=== PATIENT | female | born 1950 | race Caucasian/White ===

== ENCOUNTER → 2016-12-09 | Outpatient (CLI) | payer MEDICARE, BC ==
--- NOTE | 2016-12-12 07:52 | MM ---
Reason for exam: history of breast cancer, conservation therapy. Last mammogram was performed 6 months ago. History: Patient is postmenopausal, has history of breast cancer at age 65, has history of high-risk lesion on a previous biopsy at age 65, and has history of other cancer at age 51. Family history of breast cancer in maternal grandmother at age 50 and breast cancer in paternal aunt at age 40. High risk MG stereo VAD BX RT of the right breast, June 27, 2016. Lumpectomy of the right breast, June 2016. Radiation therapy of the right breast, June 2016. Benign core biopsy of the left breast, 1979. Took hormonal contraceptives for 10 years beginning at age 14. Physical Findings: Nurse did not find any significant physical abnormalities on exam. MG 3D Diag Mammo W/Cad PHAN Bilateral CC and MLO view(s) were taken. Prior study comparison: June 08, 2016, right breast MG diagnostic mammo RT w CAD. November 23, 2015, right breast MG 3d work up w/cad RT. There are scattered fibroglandular densities. Finding: Architectural distortion in the right breast consistent with previous lumpectomy. This will be the new baseline. These results were verbally communicated with the patient and result sheet given to the patient on 12/09/16. ASSESSMENT: Probably benign, BI-RAD 3 RECOMMENDATION: Follow-up diagnostic mammogram of the right breast in 6 months.
== END | disposition home or self-care (01) ==
LOC: RADMAMWWP 12:59
PROVIDERS: ATTEND Family Medicine
DX: Z09 Encounter for follow-up examination after completed treatment for conditions other than malignant neoplasm (principal); Z85.3 Personal history of malignant neoplasm of breast; Z87.898 Personal history of other specified conditions
CPT/HCPCS: G0204; G0279

== ENCOUNTER → 2017-06-12 | Outpatient (CLI) | payer MEDICARE, BC ==
--- NOTE | 2017-06-12 13:54 | MM ---
Reason for exam: follow-up at short interval from prior study. Last mammogram was performed 6 months ago. History: Patient is postmenopausal, has history of breast cancer at age 65, has history of high-risk lesion on a previous biopsy at age 65, and has history of other cancer at age 51. Family history of breast cancer in maternal grandmother at age 50 and breast cancer in paternal aunt at age 40. High risk MG stereo VAD BX RT of the right breast, June 27, 2016. Lumpectomy of the right breast, June 2016. Radiation therapy of the right breast, June 2016. Benign core biopsy of the left breast, 1979. Took hormonal contraceptives for 10 years beginning at age 14. Physical Findings: Nurse did not find any significant physical abnormalities on exam. MG 3D Diag Mammo W/Cad PHAN Bilateral CC and MLO view(s) were taken. Prior study comparison: December 09, 2016, bilateral MG 3d diag mammo w/cad PHAN. June 08, 2016, right breast MG diagnostic mammo RT w CAD. June 08, 2016, right breast US breast RT. November 12, 2014, bilateral MG screening mammo w CAD. October 16, 2013, bilateral digital screening mammo w/CAD. February 10, 2011, CAD bilateral diagnostic mammogram. The breast tissue is heterogeneously dense. This may lower the sensitivity of mammography. There is chronic nodularity in the left breast. Redemonstrated post surgical and post therapy changes in the right breast. The overall thickening and breast density shows slight improvement. Continued 6 month follow up recommended to assess the evolving changes. These results were verbally communicated with the patient and result sheet given to the patient on 06/12/17. ASSESSMENT: Probably benign, BI-RAD 3 RECOMMENDATION: Follow-up diagnostic mammogram of the right breast in 6 months.
== END | disposition home or self-care (01) ==
LOC: RADMAMWWP 12:22
PROVIDERS: ATTEND Family Medicine
DX: C50.919 Malignant neoplasm of unspecified site of unspecified female breast (principal)
CPT/HCPCS: G0204; G0279

== ENCOUNTER → 2017-08-02 | Outpatient (CLI) | payer MEDICARE, BC ==
--- NOTE | 2017-08-03 06:56 | WWHP ---
[facility] - HISTORY AND PHYSICAL CHIEF COMPLAINT: The patient is here for her routine gynecologic exam. HPI: This is a 66-year-old G1, P1 with an LMP of 2001. The patient is without gynecologic complaints. 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 She is status post lumpectomy and radiation therapy. Also history of acute promyelocytic leukemia in 2002, type 2 diabetes, hypothyroidism, chronic hypertension, elevated cholesterol, seasonal allergies, and gastroesophageal reflux disease and history of left ventricular hypertrophy. MEDICATIONS: Metformin 500 mg 1 in the morning and 2 in the evening, levothyroxine 112 mcg daily, lisinopril 10 mg b.i.d., cetirizine 10 mg daily, simvastatin 40 mg daily. Montelukast 10 mg daily. Omeprazole 20 mg p.r.n. Allergy shots weekly. Vitamin D 2000 units daily. ALLERGIES: No known drug allergies. PAST SURGICAL HISTORY: Tonsillectomy, tubal ligation, cholecystectomy, D and C, parathyroidectomy, cataract surgery in the past. Upper endoscopy with colonoscopy in 2011 and 2014. Right breast biopsy and right breast lumpectomy 2016. 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 She has no other history of STDs. SOCIAL HISTORY: She denies tobacco and drug use and has about 4 alcohol-containing drinks per year. She has been since 1980 and this is her 2nd marriage. 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 FAMILY HISTORY: Unchanged from the 07/12/2016 H and P. REVIEW OF SYSTEMS: She has gained about 3 pounds over the last year. She denies cardiac problems. RESPIRATORY: She is getting over bronchitis and is completing a course of antibiotics for this. GI: She states she has occasional stool urgency at random times. She denies maltreatment or falling. : She denies any significant leakage but does have occasional urinary frequency, especially when she drinks diet pop. PHYSICAL EXAM: Blood pressure 146/75, height 5 feet 1 inch, weight 188 pounds. BMI is 36, temperature 98.3, pulse 85. This is a well-developed, heavyset white female, who is alert and oriented x3, in no acute distress. HEENT: Within normal limits. NECK: Supple without mass or thyromegaly. CHEST AND LUNGS: Clear to auscultation. HEART: Regular rate and rhythm. BREASTS: On the right breast status post lumpectomy and there is dimpled area in the area of the scar at approximately the 1 o'clock position near the areola. This is well healed. There are no abnormal masses. There is some skin thickening in the right breast consistent with her previous radiation therapy. There are no left breast masses or tenderness. Axillary exam is negative for adenopathy. BACK: Negative for CVA tenderness. ABDOMEN: Soft, nontender, without palpable masses. PELVIC EXAM: External genitalia reveals mild atrophy without lesions. Cervix and vagina reveals mild atrophy without lesions. There is no significant prolapse. The uterus is mid position nongravid size and nontender. There are no palpable adnexal masses or tenderness. RECTOVAGINAL: Exam is negative for mass or tenderness and is negative for occult blood. EXTREMITIES: Nontender. IMPRESSION: 1. 66-year-old menopausal female with normal gynecologic exam. 2. History of right breast cancer status post lumpectomy and radiation therapy with no evidence of recurrence at this time. PLAN: 1. Pap smear was deferred since she had a normal one last year. 2. Self-breast examination was discussed. 3. She had a recent bilateral diagnostic mammogram on 06/12/17, which was felt to be benign. She is due for a right diagnostic mammogram in November of 2017. An order slip was given to the patient for this. 4. Osteoporosis prevention was discussed. She states she had a recent bone density test done earlier this year through her chief clerk and this was in the low normal range according to the patient. 5. She states she does home blood pressure checks and will follow up with her primary care physician for elevated blood pressures. 6. She did get a flu shot this fall. 7. She will return in 1 year. MMODL / IJN: [id number] /
== END ==
LOC: WWCWWP 11:03
PROVIDERS: ATTEND Obstetrics & Gynecology
DX: Z01.419 Encounter for gynecological examination (general) (routine) without abnormal findings (principal)

== ENCOUNTER → 2017-12-11 | Outpatient (CLI) | payer MEDICARE, BC ==
--- NOTE | 2017-12-11 11:50 | MM ---
Reason for exam: follow-up at short interval from prior study. Last mammogram was performed 6 months ago. History: Patient is postmenopausal, has history of breast cancer at age 65, has history of high-risk lesion on a previous biopsy at age 65, and has history of other cancer at age 51. Family history of breast cancer in maternal grandmother at age 50 and breast cancer in paternal aunt at age 40. High risk MG stereo VAD BX RT of the right breast, June 27, 2016. Lumpectomy of the right breast, June 2016. Radiation therapy of the right breast, June 2016. Benign core biopsy of the left breast, 1979. Took hormonal contraceptives for 10 years beginning at age 14. Physical Findings: Nurse did not find any significant physical abnormalities on exam. MG 3D Diag Mammo W/Cad RT CC and MLO view(s) were taken of the right breast. Prior study comparison: June 12, 2017, bilateral MG 3d diag mammo w/cad PHAN. December 09, 2016, bilateral MG 3d diag mammo w/cad PHAN. The breast tissue is heterogeneously dense. This may lower the sensitivity of mammography. No suspicious abnormality. Post therapy change on the right adjacent calcifications appear similar to priors. These results were verbally communicated with the patient and result sheet given to the patient on 12/11/17. ASSESSMENT: Benign, BI-RAD 2 RECOMMENDATION: Follow-up diagnostic mammogram of both breasts in 6 months. Back on schedule for May 2018.
== END | disposition home or self-care (01) ==
LOC: RADMAMWWP 10:37
PROVIDERS: ATTEND Family Medicine
DX: Z08 Encounter for follow-up examination after completed treatment for malignant neoplasm (principal); Z86.000 Personal history of in-situ neoplasm of breast
CPT/HCPCS: 77065; G0279

== ENCOUNTER → 2018-06-13 | Outpatient (CLI) | payer MEDICARE, BC ==
--- NOTE | 2018-06-13 13:59 | MM ---
Reason for exam: additional evaluation requested from prior study. Last mammogram was performed 6 months ago. History: Patient is postmenopausal, has history of breast cancer at age 65, has history of high-risk lesion on a previous biopsy at age 65, and has history of other cancer at age 51. Family history of breast cancer in maternal grandmother at age 50 and breast cancer in paternal aunt at age 40. High risk MG stereo VAD BX RT of the right breast, June 27, 2016. Lumpectomy of the right breast, June 2016. Radiation therapy of the right breast, June 2016. Benign core biopsy of the left breast, 1979. Took hormonal contraceptives for 10 years beginning at age 14. Physical Findings: Nurse did not find any significant physical abnormalities on exam. MG 3D Diag Mammo W/Cad PHAN Bilateral CC and MLO view(s) were taken. Spot compression CC, spot compression MLO, and LM view(s) were taken of the left breast. Prior study comparison: December 11, 2017, right breast MG 3d diag mammo w/cad RT. June 12, 2017, bilateral MG 3d diag mammo w/cad PHAN. The breast tissue is heterogeneously dense. This may lower the sensitivity of mammography. Developing asymmetry left lower inner quadrant. Post surgical changes in right breast. These results were verbally communicated with the patient and result sheet given to the patient on 06/13/18. ASSESSMENT: Incomplete: need additional imaging evaluation, BI-RAD 0 RECOMMENDATION: Ultrasound of the left breast.
--- NOTE | 2018-06-13 14:05 | USB ---
Reason for exam: additional evaluation requested from abnormal screening. History: Patient is postmenopausal, has history of breast cancer at age 65, has history of high-risk lesion on a previous biopsy at age 65, and has history of other cancer at age 51. Family history of breast cancer in maternal grandmother at age 50 and breast cancer in paternal aunt at age 40. High risk MG stereo VAD BX RT of the right breast, June 27, 2016. Lumpectomy of the right breast, June 2016. Radiation therapy of the right breast, June 2016. Benign core biopsy of the left breast, 1979. Took hormonal contraceptives for 10 years beginning at age 14. US Breast Limited LT Technologist: Melody Tillman, RT (R)(M) Left limited breast ultrasound including focal area of concern, retroareolar and axilla demonstrates several oval, cystic lesions measuring 7 x 4 x 4mm at 9 o'clock, 5 x 5 x 3mm at 6 o'clock, 5 x 4 x 4mm at 6 o'clock and 4mm at 6 o'clock. These results were verbally communicated with the patient and result sheet given to the patient on 06/13/18. ASSESSMENT: Probably benign, BI-RAD 3 RECOMMENDATION: Follow-up diagnostic mammogram and ultrasound of the left breast in 6 months.
== END | disposition home or self-care (01) ==
LOC: RADMAMWWP 10:41
PROVIDERS: ATTEND Family Medicine
DX: R92.8 Other abnormal and inconclusive findings on diagnostic imaging of breast (principal); C50.911 Malignant neoplasm of unspecified site of right female breast
CPT/HCPCS: 77066; 76642; G0279; 77062

== ENCOUNTER → 2018-09-05 | Outpatient (CLI) | payer MEDICARE, BC ==
[2018-09-05 10:56] VITALS: BP 146/66; PULSE 78; TEMP 97.5; BMI 33.4
--- NOTE | 2018-09-05 11:51 | P.HPOB ---
History of Present Illness H&P Date: 09/05/18 Chief Complaint: The patient is here for her routine gynecologic exam. This is a 67-year-old within LMP of 2001. The patient is without gynecologic complaints and denies any postmenopausal bleeding. Review of Systems The patient has lost 11 pounds over the last year with good diet. She denies respiratory, cardiac and G.I. problems. She denies maltreatment or problems with falling. : occasional leakage if she does not get to the bathroom in time or if she sneezes very hard. Past Medical History Past Medical History: Asthma, Cancer (Right breast cancer (DCIS)2016), Diabetes Mellitus (Type II diabetes), GERD/Reflux, Hyperlipidemia, Hypertension, Skin Disorder, Sleep Apnea/CPAP/BIPAP, Thyroid Disorder (Hypothyroid) Additional Past Medical History / Comment(s): hx ulcers ,exzema, "slipped disk in lower back". Acute promyelocytic leukemia in 2002, seasonal allergies and history of left ventricular hypertrophy. 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 History of Any Multi-Drug Resistant Organisms: None Reported Past Surgical History: Adenoidectomy, Cholecystectomy, Tonsillectomy, Tubal Ligation Additional Past Surgical History / Comment(s): parathyroid surgery, port/later removed,D&C,breast biopsy, cataracts, RK surgery. Upper endoscopy, colonoscopy 2015(2nd). Past Anesthesia/Blood Transfusion Reactions: Blood Transfusion Reaction Additional Past Anesthesia/Blood Transfusion Reaction / Comment(s): got hives during blood transfusion Past Psychological History: No Psychological Hx Reported Smoking Status: Never smoker Past Alcohol Use History: Rare (4 per year) Past Drug Use History: None Reported Additional History: She has been since 1980 and this is her 2nd marriage. She is retired. - Past Family History Brother(s) Family Medical History: Cancer (Leukemia) Father Family Medical History: Diabetes Mellitus, Myocardial Infarction (ID) Additional Family Medical History / Comment(s): Paternal great aunt had breast cancer. Mother Family Medical History: No Reported History Additional Family Medical History / Comment(s): Maternal grandmother had breast cancer. Medications and Allergies Home Medications and Allergies Comment(s): Allergy shots weekly. Home Medications Medication Instructions Recorded Confirmed Type Calcium Carbonate/Vitamin D3 2 each PO DAILY 08/26/15 09/05/18 History [Calcium 600 + Vit D Tablet] Cetirizine HCl 10 mg PO DAILY 08/26/15 09/05/18 History Cholecalciferol [Vitamin D3] 2,000 unit PO DAILY 08/26/15 09/05/18 History Ezetimibe/Simvastatin [Vytorin 1 tab PO HS 08/26/15 09/05/18 History 10-40 mg Tablet] Levothyroxine Sodium [Synthroid] 100 mcg PO DAILY 08/26/15 09/05/18 History Lisinopril [Prinivil] 20 mg PO BID 08/26/15 09/05/18 History metFORMIN HCL [Glucophage] 500 mg PO TID 08/26/15 09/05/18 History Allergies Allergy/AdvReac Type Severity Reaction Status Date / Time adhesive Allergy Severe red Verified 09/05/18 10:56 skin,rash,itchy Exam Vital Signs Temp Pulse BP 09/05/18 10:50 97.5 F L 78 146/66 Intake and Output 09/04/18 09/05/18 09/05/18 22:59 06:59 14:59 Other: Weight 80.286 kg Height 5'1", weight 177 pounds, BMI 33.4. This is a well-developed well-nourished heavyset white female who is alert and oriented times 3 in no acute distress. HEENT: Within normal limits. NECK: Supple without mass or thyromegaly. CHEST AND LUNGS: Clear to auscultation. HEART: Regular rate and rhythm. BREASTS: Are without mass or discharge. There is a dimpled area at the 12 o' clock to 1 o'clock position near the areola of the right breast consistent with her previous lumpectomy. There is some skin thickening in the area consistent with her previous radiation therapy. There are no palpable masses in either breast. There is no discharge. AXILLARY EXAM: Negative for adenopathy. BACK: Negative for CVA tenderness. ABDOMEN: Soft, nontender, without palpable masses. PELVIC EXAM: Normal external genitalia with mild to moderate atrophy. Cervix and vagina appear normal with mild to moderate atrophy. There is no unusual discharge. There is no evidence of prolapse. The uterus is midposition, nongravid size and nontender. There are no palpable adnexal masses or tenderness. RECTAL EXAM: rectovaginal exam is negative for mass or tenderness and is negative for occult blood. EXTREMITIES: Nontender. IMPRESSION: 1. 67-year-old menopausal female with normal gynecologic exam. 2. History of right breast cancer status post lumpectomy and radiation therapy with no evidence of recurrence at this time. PLAN: 1. Pap smear was performed. 2. Self breast awareness was discussed with the patient. 3. The patient had a mammogram in May 2018. They left a diagnostic mammogram and left breast ultrasound was recommended in 6 months. The order slip was given to the patient for this. 4. Osteoporosis prevention was discussed. I have stressed the importance of adequate calcium, vitamin D and regular exercise. Recommended amounts of calcium and vitamin D were also discussed. 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 5. She did receive for flu shot this fall. 6. She will return in one year.
== END ==
LOC: WWCWWP 10:42
PROVIDERS: ATTEND Obstetrics & Gynecology
DX: Z53.9 Procedure and treatment not carried out, unspecified reason (principal)

== ENCOUNTER → 2019-01-04 | Outpatient (CLI) | payer MEDICARE, BC ==
--- NOTE | 2019-01-07 10:48 | USB ---
Reason for exam: additional evaluation requested from abnormal screening. History: Patient is postmenopausal, has history of breast cancer at age 65, has history of high-risk lesion on a previous biopsy at age 65, and has history of other cancer at age 51. Family history of breast cancer in maternal grandmother at age 50 and breast cancer in paternal aunt at age 40. High risk MG stereo VAD BX RT of the right breast, June 27, 2016. Lumpectomy of the right breast, June 2016. Radiation therapy of the right breast, June 2016. Benign core biopsy of the left breast, 1979. Took hormonal contraceptives for 10 years beginning at age 14. US Breast LT Left complete breast ultrasound includes all four quadrants, the retroareolar region and axilla. Finding demonstrates a 0.5 x 0.4 x 0.5cm round, hypoechoic lesion at 6 o'clock, a 0.4 x 0.4 x 0.4cm round, hypoechoic lesion at 6 o'clock and a 0.8 x 0.6 x 0.8cm oval, hypoechoic lesion at 6 o'clock for which a biopsy is recommended. These results were verbally communicated with the patient and result sheet given to the patient on 01/04/19. ASSESSMENT: Suspicious, BI-RAD 4 RECOMMENDATION: Ultrasound core biopsy of the left breast. Called Dr. Anderson with mammographic findings and has scheduled an appointment for the patient for 01/21/19 at 10:[address] Davis. PRELIMINARY REPORT CALLED AND FAXED TO DR. DAVIS ON 01/07/19.
== END | disposition home or self-care (01) ==
LOC: RADUSWWP 13:45
PROVIDERS: ATTEND Obstetrics & Gynecology
DX: R92.8 Other abnormal and inconclusive findings on diagnostic imaging of breast (principal); D05.11 Intraductal carcinoma in situ of right breast; Z85.3 Personal history of malignant neoplasm of breast

== ENCOUNTER → 2019-01-04 | Outpatient (CLI) | payer MEDICARE, BC ==
--- NOTE | 2019-01-07 10:45 | MM ---
Reason for exam: follow-up at short interval from prior study. Last mammogram was performed 7 months ago. History: Patient is postmenopausal, has history of breast cancer at age 65, has history of high-risk lesion on a previous biopsy at age 65, and has history of other cancer at age 51. Family history of breast cancer in maternal grandmother at age 50 and breast cancer in paternal aunt at age 40. High risk MG stereo VAD BX RT of the right breast, June 27, 2016. Lumpectomy of the right breast, June 2016. Radiation therapy of the right breast, June 2016. Benign core biopsy of the left breast, 1979. Took hormonal contraceptives for 10 years beginning at age 14. Physical Findings: Nurse did not find any significant physical abnormalities on exam. MG 3D Diag Mammo W/Cad LT CC and MLO view(s) were taken of the left breast. Prior study comparison: June 13, 2018, bilateral MG 3d diag mammo w/cad PHAN. December 11, 2017, right breast MG 3d diag mammo w/cad RT. The breast tissue is heterogeneously dense. This may lower the sensitivity of mammography. Stable benign calcifications. There is chronic nodularity in the left breast. There is no dominant lesion. These results were verbally communicated with the patient and result sheet given to the patient on 01/04/19. ASSESSMENT: Incomplete: need additional imaging evaluation, BI-RAD 0 RECOMMENDATION: Ultrasound of the left breast.
== END ==
LOC: RADMAMWWP 13:39
PROVIDERS: ATTEND Student in an Organized Health Care Education/Training Program
DX: D05.11 Intraductal carcinoma in situ of right breast (principal)
CPT/HCPCS: 77065; G0279; 77061

== ENCOUNTER → 2019-02-07 | Day surgery (SDC) | payer MEDICARE, BC ==
[2019-02-07 11:21] VITALS: RESP 16; BMI 34.2
[2019-02-07 13:17] VITALS: BP 163/79; PULSE 75; TEMP 98
--- NOTE | 2019-02-07 13:27 | USB ---
ULTRASOUND GUIDED CORE BIOPSY OF THE LEFT BREAST: CLINICAL HISTORY: Abnormal mammogram and ultrasound left breast FINDINGS: The procedure was explained to the patient. The risks, complications, benefits and alternatives were discussed and any questions were answered. Informed consent was obtained. Patient was placed supin e on the ultrasound table and prepped and draped in the usual sterile fashion. Utilizing a 14-gauge core biopsy needle, five passes were made into the requested lesion of the left breast at the 6:00 po sition. Surgical clip was placed post procedural. Postprocedural mammogram demonstrated the clip to be in ideal location. Patient was stable throughout the procedure. Pathology is pending. All elements of maximal barrier and sterile technique were utilized. IMPRESSION: 1. Successful ultrasound guided core biopsy left breast.
--- NOTE | 2019-02-07 13:37 | MM ---
Reason for exam: additional evaluation requested from abnormal screening. Last mammogram was performed 1 month ago. History: Patient is postmenopausal, has history of breast cancer at age 65, has history of high-risk lesion on a previous biopsy at age 65, and has history of other cancer at age 51. Family history of breast cancer in maternal grandmother at age 50 and breast cancer in paternal aunt at age 40. High risk MG stereo VAD BX RT of the right breast, June 27, 2016. Lumpectomy of the right breast, June 2016. Radiation therapy of the right breast, June 2016. Benign core biopsy of the left breast, 1979. Took hormonal contraceptives for 10 years beginning at age 14. MG Diagnostic Mammo LT Wo CAD CC and MLO view(s) were taken of the left breast. Prior study comparison: January 04, 2019, left breast MG 3d diag mammo w/cad LT. June 13, 2018, bilateral MG 3d diag mammo w/cad PHAN. ASSESSMENT: Post procedure mammogram for marker placement RECOMMENDATION: Ultrasound of the left breast in 6 months. PENDING PATHOLOGY RESULTS.
== END ==
LOC: RADUSWWP 11:00
PROVIDERS: ATTEND Student in an Organized Health Care Education/Training Program
DX: C50.812 Malignant neoplasm of overlapping sites of left female breast (principal); Z80.3 Family history of malignant neoplasm of breast; Z85.3 Personal history of malignant neoplasm of breast; Z91.09 Other allergy status, other than to drugs and biological substances
CPT/HCPCS: 88305; 88342; 88341; 77065; 19083; A4648; J2001

== ENCOUNTER → 2019-12-04 | Outpatient (CLI) | payer MEDICARE ==
--- NOTE | 2019-12-04 11:12 | US ---
EXAMINATION TYPE: US transvaginal DATE OF EXAM: 12/04/2019 COMPARISON: NONE CLINICAL HISTORY: R10.31 RLQ. ongoing RLQ pain for over a year, , D/C TECHNIQUE: TV. Transvaginal sonographic images Date of LMP: 19 yrs ago EXAM MEASUREMENTS: Uterus: 6.7 x 2.9 x 3.4 cm Endometrial Stripe: 0.2 cm Right Ovary: Not seen Left Ovary: 1.8 x 1.6 x 1.8 cm 1. Uterus: Anteverted wnl 2. Endometrium: wnl 3. Right Ovary: not seen due to bowel gas and atrophy 4. Left Ovary: wnl 5. Bilateral Adnexa: wnl 6. Posterior cul-de-sac: wnl IMPRESSION: Nonvisualization of the right ovary due to overlying bowel gas despite transvaginal imagi ng. Left ovary is atrophic but otherwise unremarkable. No abnormal endometrial thickening.
--- NOTE | 2019-12-04 12:33 | P.PN ---
Progress Note - Text Progress Note Date: 12/04/19 OUTPATIENT FOLLOW-UP NOTE TEST(S)/RESULTS: Pelvic ultrasound done on 12/04/2019 is unremarkable. There is no evidence of any pelvic or ovarian masses. There is no endometrial thickening. METHOD OF NOTIFICATION: The patient was notified by phone. PATIENT COMMENTS: She is happy to hear this result. She believes that possibly the pain she hasn't been experiencing may be related to her hip. DIAGNOSIS: Unremarkable pelvic ultrasound. DISCUSSION: PLAN: The patient was instructed to follow-up with her primary care physician if she continues to have pain or discomfort and nontender clot causes can be looked into. The patient was advised to return in 1-2 years for her well woman examination.
== END | disposition home or self-care (01) ==
LOC: RADUSWWP 10:20
PROVIDERS: ATTEND Obstetrics & Gynecology
DX: N83.312 Acquired atrophy of left ovary (principal)
CPT/HCPCS: 76830

== ENCOUNTER → 2020-12-01 | Outpatient (CLI) | payer MEDICARE ==
[2020-12-01 14:07] VITALS: BP 127/81; PULSE 98; RESP 18; TEMP 98.1
--- NOTE | 2020-12-01 15:01 | P.HPOB ---
History of Present Illness H&P Date: 12/01/20 Chief Complaint: The patient is here for her routine gynecologic exam. This is a 70 year old with an LMP of 2001. The patient is without gynecologic complaints and denies any postmenopausal bleeding. Her mammograms have been done at [facility] and these have been ordered by her breast cancer specialist at [facility]. Her last one was done in February 2020 per the patient. Review of Systems The patient's weight has been stable over the last year. She denies respiratory, cardiac, or G.I. problems. Past Medical History Past Medical History: Asthma, Cancer, Diabetes Mellitus, GERD/Reflux, Hyperlipidemia, Hypertension, Skin Disorder, Sleep Apnea/CPAP/BIPAP, Thyroid Disorder Additional Past Medical History / Comment(s): right breast ca 2015, L breast CA 2018(each s/p lumpectomy+radiation),hx ulcers,eczema,lower back pain. Acute promyelocytic leukemia in 2002,seasonal allergies,history of left ventricular hypertrophy. Kidney stones. 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 History of Any Multi-Drug Resistant Organisms: None Reported Past Surgical History: Adenoidectomy, Breast Surgery, Cholecystectomy, Tonsillectomy, Tubal Ligation Additional Past Surgical History / Comment(s): parathyroid surgery,port/later removed,D&C,,right breast biopsy with lumpectomy/radiation-2015.,left breast cyst asp-benign.L breast lumpectomy 2018,cataracts,Upper endoscopy,colonoscopy 2014,kidney stone surgery 2019 Past Anesthesia/Blood Transfusion Reactions: Previous Problems w/ Anesthesia, Blood Transfusion Reaction Additional Past Anesthesia/Blood Transfusion Reaction / Comment(s): got hives during blood transfusion-during tx for leukemia. sob after general anesthesia for right breast lumpectomy, needed breathing tx immediately Past Psychological History: No Psychological Hx Reported Smoking Status: Never smoker Past Alcohol Use History: Rare (3 per year) Past Drug Use History: None Reported Additional History: She has been since 1980 and this is her second marriage. She is retired. - Past Family History Father Family Medical History: Diabetes Mellitus, Myocardial Infarction ([place]) Additional Family Medical History / Comment(s): Paternal great aunt had breast cancer. Mother Family Medical History: No Reported History Additional Family Medical History / Comment(s): Maternal grandmother had breast cancer. Brother(s) Family Medical History: Cancer Additional Family Medical History / Comment(s): Leukemia. Medications and Allergies Home Medications Medication Instructions Recorded Confirmed Type Calcium Carbonate/Vitamin D3 2 each PO HS 08/26/15 12/01/20 History [Calcium 600 + Vit D Tablet] Cetirizine HCl 10 mg PO DAILY 08/26/15 12/01/20 History Cholecalciferol [Vitamin D3] 2,000 unit PO DAILY 08/26/15 12/01/20 History Levothyroxine Sodium [Synthroid] 100 mcg PO DAILY 08/26/15 12/01/20 History metFORMIN HCL [Glucophage] 1,500 mg PO BID 08/26/15 12/01/20 History Aspirin 81 mg PO HS 01/30/19 12/01/20 History Montelukast Sodium [Singulair] 10 mg PO HS 01/30/19 12/01/20 History Potassium Citrate [Potassium 10 meq PO BID 01/30/19 12/01/20 History Citrate ER] Simvastatin 40 mg PO HS 01/30/19 12/01/20 History lisinopriL 20 mg PO BID 01/30/19 12/01/20 History Anastrozole [Arimidex] 1 mg PO DAILY 11/13/19 12/01/20 History amLODIPine BESYLATE [Norvasc] 7.5 mg PO DAILY 12/01/20 12/01/20 History valACYclovir HCL 1,000 mg PO DAILY PRN 12/01/20 12/01/20 History Allergies Allergy/AdvReac Type Severity Reaction Status Date / Time adhesive Allergy Severe red Verified 12/01/20 14:08 skin,rash,itchy cat dander AdvReac Itching Unverified 12/01/20 14:08 grass pollen AdvReac Itching Unverified 12/01/20 14:08 mold AdvReac Itching Unverified 12/01/20 14:08 pollen extracts AdvReac Itching Unverified 12/01/20 14:08 tree and shrub pollen AdvReac Itching Unverified 12/01/20 14:08 Exam Vital Signs Temp Pulse Resp BP Pulse Ox 12/01/20 14:01 98.1 F 98 18 127/81 100 Intake and Output 11/30/20 12/01/20 12/01/20 22:59 06:59 14:59 Other: Weight 84.368 kg Height 5 feet 0 inches, weight 186 pounds, BMI 36.3. This is a well-developed well-nourished white female who is alert and oriented times 3 in no acute distress. HEENT: Within normal limits. NECK: Supple without mass or thyromegaly. CHEST AND LUNGS: Clear to auscultation. HEART: Regular rate and rhythm. BREASTS: Are without mass or discharge. Both breasts are consistent with previous lumpectomy. The right lumpectomy scar is at the periphery of the areola at the 1:00 to 3 o'clock position. The left lung lobectomy scar is along the periphery of the left areola from the 3:00 and 9 o'clock position. Both are well-healed. There are no palpable masses. There is mild skin thickening in the areas of the lumpectomy scars consistent with her previous radiation. AXILLARY EXAM: Negative for adenopathy. BACK: Negative for CVA tenderness. ABDOMEN: Soft, nontender, without palpable masses. PELVIC EXAM: Normal external genitalia with mild atrophy. Cervix and vagina appear normal with mild atrophy. There is no unusual discharge. There is no evidence of prolapse. The uterus is midposition, nongravid size and nontender. There are no palpable adnexal masses or tenderness. RECTAL EXAM: Rectovaginal exam is negative for mass or tenderness and is negative for occult blood. EXTREMITIES: Nontender. IMPRESSION: 1. 70-year-old menopausal female with normal gynecologic exam. 2. History of bilateral breast cancers status post lumpectomies and radiation therapy. No evidence of recurrence on exam today. PLAN: 1. Pap smear was performed. If this one is negative we will have 3 negative ones in a row and Pap smears will be discontinued. The patient states she has no history of cervical neoplasia. 2. Self breast awareness was discussed with the patient. 3. The patient states she will be due for a mammogram in February 2021 and she plans on doing this at [facility] and she has an order through her breast cancer specialist. 4. Osteoporosis prevention was discussed. I have stressed the importance of adequate calcium, vitamin D and regular exercise. Recommended amounts of calcium and vitamin D were also discussed. She states she had a normal bone density test done through her hydrator. She will continue to have her bone density test done through that Dr. 5. She states she is due for her colonoscopy and will arrange this through her PCP. 6. She was advised to return in one year for her annual well woman exam.
--- NOTE | 2020-12-08 16:20 | P.PN ---
Progress Note - Text Progress Note Date: 12/08/20 OUTPATIENT FOLLOW-UP NOTE TEST(S)/RESULTS: Pap smear done on 12/01/2020 was negative. METHOD OF NOTIFICATION: This result was given to the patient's by phone. He will past this along to the patient. PATIENT COMMENTS: DIAGNOSIS: Negative Pap smear DISCUSSION: Since we have 3 negative Pap smears in the last 10 years and she is greater than 65 with no history of cervical neoplasia, Pap smears will be discontinued. PLAN: She was advised to return in one year for her annual well woman exam.
== END ==
LOC: WWCWWP 13:51
PROVIDERS: ATTEND Obstetrics & Gynecology
DX: Z01.419 Encounter for gynecological examination (general) (routine) without abnormal findings (principal); Z85.3 Personal history of malignant neoplasm of breast; J45.909 Unspecified asthma, uncomplicated; E11.9 Type 2 diabetes mellitus without complications; E78.5 Hyperlipidemia, unspecified; K21.9 Gastro-esophageal reflux disease without esophagitis; I10 Essential (primary) hypertension; E07.9 Disorder of thyroid, unspecified; Z79.899 Other long term (current) drug therapy; Z79.811 Long term (current) use of aromatase inhibitors; Z79.84 Long term (current) use of oral hypoglycemic drugs; Z98.890 Other specified postprocedural states

== ENCOUNTER → 2022-02-22 | Outpatient (CLI) | payer MEDICARE ==
[2022-02-22 14:30] VITALS: BP 156/75; PULSE 95; RESP 17; TEMP 98.4
--- NOTE | 2022-02-22 15:04 | P.HPOB ---
History of Present Illness H&P Date: 02/22/22 Chief Complaint: The patient is here for her routine gynecologic exam. This is a 71-year-old with an LMP of 2001. The patient is without gynecologic complaints. She continues to see a breast cancer specialist at [facility] and also does her mammograms at [facility]. Review of Systems The patient has lost 18 pounds over the last year. She denies respiratory, cardiac, or G.I. problems. Past Medical History Past Medical History: Asthma, Cancer, Diabetes Mellitus, GERD/Reflux, Hyperlipidemia, Hypertension, Skin Disorder, Sleep Apnea/CPAP/BIPAP, Thyroid Disorder Additional Past Medical History / Comment(s): right breast ca 2015, L breast CA 2019(each s/p lumpectomy+radiation),hx ulcers,eczema,lower back pain. Acute promyelocytic leukemia in 2002,seasonal allergies,history of left ventricular hypertrophy. Kidney stones. 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 History of Any Multi-Drug Resistant Organisms: None Reported Past Surgical History: Adenoidectomy, Breast Surgery, Cholecystectomy, Tonsillectomy, Tubal Ligation Additional Past Surgical History / Comment(s): parathyroid surgery,port/later removed,D&C,,right breast biopsy with lumpectomy/radiation-2015.,left breast cyst asp-benign.L breast lumpectomy 2018,cataracts,Upper endoscopy,colonoscopy 2014,kidney stone surgery 2018 Past Anesthesia/Blood Transfusion Reactions: Previous Problems w/ Anesthesia, Blood Transfusion Reaction Additional Past Anesthesia/Blood Transfusion Reaction / Comment(s): got hives during blood transfusion-during tx for leukemia. sob after general anesthesia for right breast lumpectomy, needed breathing tx immediately Past Psychological History: No Psychological Hx Reported Smoking Status: Never smoker Past Alcohol Use History: Rare (5 per year) Past Drug Use History: None Reported Additional History: She has been since 1980 and this is her second marriage. She is retired. - Past Family History Father Family Medical History: Diabetes Mellitus, Myocardial Infarction ([place]) Additional Family Medical History / Comment(s): Paternal great aunt had breast cancer. Mother Family Medical History: No Reported History Additional Family Medical History / Comment(s): Maternal grandmother had breast cancer. Brother(s) Family Medical History: Cancer Additional Family Medical History / Comment(s): Leukemia. Medications and Allergies Home Medications Medication Instructions Recorded Confirmed Type Calcium Carbonate/Vitamin D3 2 each PO HS 08/26/15 02/22/22 History [Calcium 600 + Vit D Tablet] Cetirizine HCl 10 mg PO DAILY 08/26/15 02/22/22 History Cholecalciferol [Vitamin D3] 2,000 unit PO DAILY 08/26/15 02/22/22 History Levothyroxine Sodium [Synthroid] 100 mcg PO DAILY 08/26/15 02/22/22 History metFORMIN HCL [Glucophage] 1,500 mg PO BID 08/26/15 02/22/22 History Aspirin 81 mg PO HS 01/30/19 02/22/22 History Montelukast Sodium [Singulair] 10 mg PO HS 01/30/19 02/22/22 History Potassium Citrate [Potassium 10 meq PO BID 01/30/19 02/22/22 History Citrate ER] Simvastatin 40 mg PO HS 01/30/19 02/22/22 History lisinopriL 20 mg PO BID 01/30/19 02/22/22 History Anastrozole [Arimidex] 1 mg PO DAILY 11/13/19 02/22/22 History amLODIPine BESYLATE [Norvasc] 7.5 mg PO DAILY 12/01/20 02/22/22 History valACYclovir HCL 1,000 mg PO DAILY PRN 12/01/20 02/22/22 History Allergies Allergy/AdvReac Type Severity Reaction Status Date / Time adhesive Allergy Severe red Verified 02/22/22 14:19 skin,rash,itchy cat dander AdvReac Itching Unverified 02/22/22 14:19 grass pollen AdvReac Itching Unverified 02/22/22 14:19 mold AdvReac Itching Unverified 02/22/22 14:19 pollen extracts AdvReac Itching Unverified 02/22/22 14:19 tree and shrub pollen AdvReac Itching Unverified 02/22/22 14:19 Exam Vital Signs Temp Pulse Resp BP Pulse Ox 02/22/22 14:25 98.4 F 95 17 156/75 97 Intake and Output 02/21/22 02/22/22 02/22/22 22:59 06:59 14:59 Other: Weight 76.204 kg Height 5 feet 0 inches, weight 168 pounds, BMI 32.8. This is a well-developed well-nourished white female who is alert and oriented times 3 in no acute distress. HEENT: Within normal limits. NECK: Supple without mass or thyromegaly. CHEST AND LUNGS: Clear to auscultation. HEART: Regular rate and rhythm. BREASTS: Are without mass or discharge. There are dimpled areas in both breasts consistent with bilateral lumpectomies. In the right breast the dimpled area is at the 1 o'clock position and in the left breast that is at the 7 o'clock position. AXILLARY EXAM: Negative for adenopathy. BACK: Negative for CVA tenderness. ABDOMEN: Soft, nontender, without palpable masses. PELVIC EXAM: Normal external genitalia with mild atrophy. Cervix and vagina appear normal with mild atrophy. There is no unusual discharge. There is no evidence of prolapse. The uterus is midposition, nongravid size and nontender. There are no palpable adnexal masses or tenderness. RECTAL EXAM: Rectovaginal exam is negative for mass or tenderness and is negative for occult blood. EXTREMITIES: Nontender. IMPRESSION: 1. 71-year-old menopausal female with normal gynecologic exam. 2. History of bilateral breast cancers and is status post bilateral lumpectomies with radiation therapy for each breast. No evidence of recurrence on exam today. 3. History of osteopenia. PLAN: 1. Pap smears have been discontinued. 2. Self breast awareness was discussed with the patient. We have also discussed symptoms associated with inflammatory breast cancer. 3. Bilateral mammogram will be due in approximately 2 months. The patient has an order for this and she will continue to do mammograms at [facility]. She will continue to see her breast cancer specialist at [facility]. 4. Osteoporosis prevention was discussed. I have stressed the importance of adequate calcium, vitamin D and regular exercise. Recommended amounts of calcium and vitamin D were also discussed. She will continue to see her territory sales professional for bone density testing and follow-up for her osteopenia. 5. She has completed her Covid vaccination series and did receive 2 booster shots. 6. She was advised to return in one year for her annual well woman exam.
== END ==
LOC: WWCWWP 13:57
PROVIDERS: ATTEND Obstetrics & Gynecology
DX: Z01.419 Encounter for gynecological examination (general) (routine) without abnormal findings (principal); J45.909 Unspecified asthma, uncomplicated; E11.9 Type 2 diabetes mellitus without complications; K21.9 Gastro-esophageal reflux disease without esophagitis; E78.5 Hyperlipidemia, unspecified; I10 Essential (primary) hypertension; Z85.3 Personal history of malignant neoplasm of breast; Z98.890 Other specified postprocedural states; Z92.3 Personal history of irradiation; Z87.39 Personal history of other diseases of the musculoskeletal system and connective tissue; Z79.84 Long term (current) use of oral hypoglycemic drugs; Z79.899 Other long term (current) drug therapy; Z91.048 Other nonmedicinal substance allergy status; Z91.09 Other allergy status, other than to drugs and biological substances

== ENCOUNTER → 2023-04-12 | Outpatient (CLI) | payer MEDICARE ==
[2023-04-12 10:30] VITALS: BP 144/81; PULSE 78; RESP 16; TEMP 97.9
--- NOTE | 2023-04-12 11:11 | P.HPOB ---
History of Present Illness H&P Date: 04/12/23 Chief Complaint: The patient is here for her routine gynecologic exam. This is a 72-year-old with an LMP of 2001. The patient is without gynecologic complaints. She continues to see her oncologist at [facility] for her history of bilateral breast cancers. She is scheduled for a mammogram at [facility] later this week. Review of Systems The patient has lost 14 pounds over the last year. She exercises regularly for weight control. She denies respiratory, cardiac, or G.I. problems. Past Medical History Past Medical History: Asthma, Cancer, Diabetes Mellitus, GERD/Reflux, Hyperli pidemia, Hypertension, Skin Disorder, Sleep Apnea/CPAP/BIPAP, Thyroid Disorder Additional Past Medical History / Comment(s): right breast ca 2015, L breast CA 2019(each s/p lumpectomy+radiation),hx ulcers,eczema,lower back pain. Acute promyelocytic leukemia in 2002,seasonal allergies,history of left ventricular hypertrophy. Kidney stones. Borderline osteopenia. 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 History of Any Multi-Drug Resistant Organisms: None Reported Past Surgical History: Adenoidectomy, Breast Surgery, Cholecystectomy, Tonsillectomy, Tubal Ligation Additional Past Surgical History / Comment(s): parathyroid surgery,port/later removed,D&C,,right breast biopsy with lumpectomy/radiation-2015.,left breast cyst asp-benign.L breast lumpectomy 2018,cataracts,Upper endoscopy,colonoscopy 2014,kidney stone surgery 2019 Past Anesthesia/Blood Transfusion Reactions: Previous Problems w/ Anesthesia, Blood Transfusion Reaction Additional Past Anesthesia/Blood Transfusion Reaction / Comment(s): got hives during blood transfusion-during tx for leukemia. sob after general anesthesia for right breast lumpectomy, needed breathing tx immediately Past Psychological History: No Psychological Hx Reported Smoking Status: Never smoker Past Alcohol Use History: Rare (5 per year.) Past Drug Use History: None Reported Additional History: She has been since 1980 and this is her second marriage. She is not sexually active. She is retired. - Past Family History Father Family Medical History: Diabetes Mellitus, Myocardial Infarction ([place]) Additional Family Medical History / Comment(s): Paternal great aunt had breast cancer. Mother Family Medical History: No Reported History Additional Family Medical History / Comment(s): Maternal grandmother had breast cancer. Brother(s) Family Medical History: Cancer Additional Family Medical History / Comment(s): Leukemia. Medications and Allergies Home Medications Medication Instructions Recorded Confirmed Type Calcium Carbonate/Vitamin D3 2 each PO HS 08/26/15 04/12/23 History [Calcium 600 + Vit D Tablet] Cetirizine HCl 10 mg PO DAILY 08/26/15 04/12/23 History Levothyroxine Sodium [Synthroid] 100 mcg PO DAILY 08/26/15 04/12/23 History metFORMIN HCL [Glucophage] 1,500 mg PO BID 08/26/15 04/12/23 History Aspirin 81 mg PO HS 01/30/19 04/12/23 History Montelukast Sodium [Singulair] 10 mg PO HS 01/30/19 04/12/23 History Potassium Citrate [Potassium 10 meq PO BID 01/30/19 04/12/23 History Citrate ER] Simvastatin 40 mg PO HS 01/30/19 04/12/23 History lisinopriL 20 mg PO BID 01/30/19 04/12/23 History Anastrozole [Arimidex] 1 mg PO DAILY 11/13/19 04/12/23 History amLODIPine BESYLATE [Norvasc] 7.5 mg PO DAILY 12/01/20 04/12/23 History valACYclovir HCL [Valacyclovir] 1,000 mg PO DAILY PRN 12/01/20 04/12/23 History Semaglutide [Ozempic] 1 mg INJ WEEKLY 04/12/23 04/12/23 History Allergies Allergy/AdvReac Type Severity Reaction Status Date / Time adhesive Allergy Severe red Verified 04/12/23 10:25 skin,rash,itchy cat dander AdvReac Itching Unverified 04/12/23 10:25 grass pollen AdvReac Itching Unverified 04/12/23 10:25 mold AdvReac Itching Unverified 04/12/23 10:25 pollen extracts AdvReac Itching Unverified 04/12/23 10:25 tree and shrub pollen AdvReac Itching Unverified 04/12/23 10:25 Exam Vital Signs Temp Pulse Resp BP Pulse Ox 04/12/23 10:26 97.9 F 78 16 144/81 99 Intake and Output 0704/12/23 04/12/23 22:59 06:59 14:59 Other: Weight 69.853 kg Height 5 feet 0 inches, weight 154 pounds, BMI 30.1. This is a well-developed well-nourished white female who is alert and oriented times 3 in no acute distress. HEENT: Within normal limits. NECK: Supple without mass or thyromegaly. CHEST AND LUNGS: Clear to auscultation. HEART: Regular rate and rhythm. BREASTS: Are without mass or discharge. AXILLARY EXAM: Negative for adenopathy. BACK: Negative for CVA tenderness. ABDOMEN: Soft, nontender, without palpable masses. PELVIC EXAM: Normal external genitalia with mild to moderate atrophy. Cervix and vagina appear normal with mild to moderate atrophy. There is no unusual discharge. There is no evidence of prolapse. The uterus is midposition, nongravid size and nontender. There are no palpable adnexal masses or tenderness. RECTAL EXAM: Rectovaginal exam is negative for mass or tenderness and is negative for occult blood. EXTREMITIES: Nontender. IMPRESSION: 1. 72-year-old menopausal female with normal gynecologic exam. 2. History of bilateral primary breast cancers in the past each status post lumpectomy with radiation therapy. No evidence of recurrence on exam today. 3. History of osteopenia. This is followed by her flatbed stitcher. PLAN: 1. Pap smears have been discontinued. 2. Self breast awareness was discussed with the patient. We have also discussed symptoms associated with inflammatory breast cancer. 3. Screening mammogram is scheduled at [facility] later this week. The order slip was given to the patient for this. 4. She will continue to follow up with her oncologist for her history of breast cancer appear 5. Osteoporosis prevention was discussed. I have stressed the importance of adequate calcium, vitamin D and regular exercise. Recommended amounts of calcium and vitamin D were also discussed. She states she is planning to do another bone density test through her flatbed stitcher later this fall. 6. She was advised to return in one year for her annual well woman exam.
== END ==
LOC: WWCWWP 10:19
PROVIDERS: ATTEND Obstetrics & Gynecology
DX: Z01.419 Encounter for gynecological examination (general) (routine) without abnormal findings (principal); E11.9 Type 2 diabetes mellitus without complications; I10 Essential (primary) hypertension; M85.80 Other specified disorders of bone density and structure, unspecified site; J45.909 Unspecified asthma, uncomplicated; G47.30 Sleep apnea, unspecified; E78.5 Hyperlipidemia, unspecified; Z78.0 Asymptomatic menopausal state; Z85.3 Personal history of malignant neoplasm of breast; Z80.3 Family history of malignant neoplasm of breast; Z92.3 Personal history of irradiation; Z85.6 Personal history of leukemia; K21.9 Gastro-esophageal reflux disease without esophagitis; Z79.84 Long term (current) use of oral hypoglycemic drugs; Z79.82 Long term (current) use of aspirin; Z12.31 Encounter for screening mammogram for malignant neoplasm of breast; Z79.890 Hormone replacement therapy; Z99.89 Dependence on other enabling machines and devices; E07.9 Disorder of thyroid, unspecified; Z91.048 Other nonmedicinal substance allergy status; Z91.018 Allergy to other foods; Z88.8 Allergy status to other drugs, medicaments and biological substances

== ENCOUNTER 2023-07-28 08:10 | Day surgery (SDC) | payer MEDICARE ==
[2023-07-27 11:28] VITALS: BMI 28.9
[~2023-07-28 08:10] MED LIST: LACTATED RINGERS 1,000 ML IV SCH
[2023-07-28 08:43] VITALS: RESP 16; TEMP 98.4
[2023-07-28 08:50] LABS: Glucose,Whole Blood 92 mg/dL (70-110)
[2023-07-28] MEDS ORDERED: LIDOCAINE 1% INJ 10MG/ML (20 ML MDV) ONE (09:22)
[2023-07-28] MEDS ORDERED: PROPOFOL 10 MG/ML 20 ML VIAL IV ONE (09:22)
--- NOTE | 2023-07-28 09:50 | P.PCN ---
Date of Procedure: 07/28/23 Procedure(s) Performed: Brief history: Patient is a pleasant 72-year-old white female scheduled for an elective upper endoscopy as well as colonoscopy as a part of evaluation of GERD/recent episode of acute ischemic colitis 3 months ago. She was admitted to [facility] with acute onset of lower abdominal pain and rectal bleeding and the CT of the abdomen revealed thickening of the left colon.. She was she began to [place] then discharged home in 2 days.. Her symptoms have completely resolved now.. Procedure performed: Esophagogastroduodenoscopy with biopsy Colonoscopy with biopsy Preoperative diagnosis: GERD Recent episode of acute colitis Anesthesia: [facility] Procedure: After informed consent was obtained from the patient was brought into the endoscopy unit and IV sedation was administered by anesthesia under continuous monitoring. Initially upper endoscopy was done. The Olympus GF 160 video endoscope was inserted inserted into the mouth and esophagus intubated without any difficulty and was gradually advanced into the stomach and duodenum and carefully examined. The bulb and second part of the duodenum appeared normal. The scope was then withdrawn into the stomach adequately insufflated with air and upon careful examination the antrum had mild antral gastritis and biopsies were done from this area. The body the stomach there was small gastric polyps which were biopsied. body, cardia and fundus appeared normal. The scope was then withdrawn into the esophagus. The GE junction was located at 40 cm to the incisors. It appeared regular with no erythema erosions or ulcerations. Rest of the esophagus appeared normal. Patient tolerated the procedure well. At this time the patient continued to remain sedation. Initial digital rectal examination was normal. Olympus CF 160 video colonoscope was then inserted into the rectum and gradually advanced to the cecum without any difficulty. Careful examination was performed as the scope was gradually being withdrawn. The prep was excellent. The cecum, ascending colon, transverse colon, descending colon, sigmoid colon and rectum appeared normal. At her sigmoid diverticula cyst. He the proximal rectum there was a 3 mm polyp that was removed by cold biopsy. Retroflexion was performed in the rectum and no lesions were noted. Patient tolerated the procedure well. Impression: 1. Upper endoscopy revealed mild antral gastritis and small gastric polyps 2. Colonoscopy revealed 3 mm rectal polyp status post cold biopsy and scattered sigmoid diverticulosis Recommendations: Findings of this examination were discussed with the patient as well as. She was advised to follow with the biopsy results. Continue with Pepcid 20 mg daily and follow antrum reflux measures. If the biopsy the colon polyp reveals adenoma she can have a repeat colonoscopy in 5 years
[2023-07-28 10:16] VITALS: BP 133/78; PULSE 83
== END 2023-07-28 10:20 | disposition home or self-care (01) ==
LOC: ORWHC2ENDO 08:10
PROVIDERS: ATTEND Internal Medicine Gastroenterology
DX: K29.50 Unspecified chronic gastritis without bleeding (principal); K31.7 Polyp of stomach and duodenum; K63.5 Polyp of colon; K62.1 Rectal polyp; K57.30 Diverticulosis of large intestine without perforation or abscess without bleeding; K62.5 Hemorrhage of anus and rectum; I10 Essential (primary) hypertension; E78.5 Hyperlipidemia, unspecified; J45.909 Unspecified asthma, uncomplicated; E11.9 Type 2 diabetes mellitus without complications; K21.9 Gastro-esophageal reflux disease without esophagitis; Z79.83 Long term (current) use of bisphosphonates; Z91.048 Other nonmedicinal substance allergy status; Z79.85 Long-term (current) use of injectable non-insulin antidiabetic drugs; Z98.890 Other specified postprocedural states; Z79.899 Other long term (current) drug therapy
CPT/HCPCS: 45380; 43239; J2001; J2704; 88305